=== PATIENT | male | born 1955 | race Two or more races ===

== ENCOUNTER 2017-09-13 10:32 | Emergency (ER) | payer SELFPAY ==
[~2017-09-13] VITALS: Ht 180.3 cm; Wt 95.3 kg
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
[2017-09-13 11:26] VITALS: BP 136/89
[2017-09-13 11:36] VITALS: BP 130/85
== END 2017-09-13 11:40 | disposition home or self-care (01) ==
LOC: EDBD 10:32 → EMR 11:03
DX: Z77.21 Contact with and (suspected) exposure to potentially hazardous body fluids (principal)
CPT/HCPCS: 99283